=== PATIENT | female | born 1940 | race Caucasian/White ===

== ENCOUNTER → 2017-04-17 | Outpatient (CLI) | payer BC ==
[~2017-04-17] MED LIST: ASPCH81X PO; B-COTAB18 PO; CALC-354 PO; LTR510 PO; MELO7.5T5 PO; MULT-190 PO; NORT10CA2 PO; PRAV40TA2 PO
--- NOTE | 2017-04-18 07:56 | MAMMOGRAPHY REPORT ---
BILATERAL DIGITAL SCREENING MAMMOGRAM TOMOSYNTHESIS WITH CAD: 04/17/2017 CLINICAL HISTORY: Routine screening. Patient has no complaints. TECHNIQUE: Breast tomosynthesis in addition to standard 2D mammography was performed. Current study was also evaluated with a Computer Aided Detection (CAD) system. COMPARISON: Comparison is made to exams dated: 10/17/2016 mammogram, 04/19/2016 mammogram, 04/14/2016 mammogram, 04/13/2015 mammogram, 04/10/2014 mammogram, and 04/09/2013 mammogram - [facility]. BREAST COMPOSITION: There are scattered areas of fibroglandular density in both breasts. FINDINGS: The parenchymal pattern is similar to prior exams. There are numerous bilateral benign r im calcifications. No developing mass, architectural distortion or cluster of suspicious microcalci fications is seen in either breast. IMPRESSION: ACR BI-RADS CATEGORY 2: BENIGN There is no mammographic evidence of malignancy. A 1 year screening mammogram is recommended. The p atient will receive written notification of the results. Approximately 10% of breast cancers are not detected with mammography. A negative mammographic repor t should not delay biopsy if a clinically suggestive mass is present. Jayne Knox M.D. ay/:04/17/2017 21:31:36 Oyster Farmer: Farzaneh MORALES(Castillo)(Angela)(SOCO), [facility] letter sent: Normal 1/2 BI-RADS Code: ACR BI-RADS Category 2: Benign
== END | disposition home or self-care (01) ==
LOC: C.MAMM 10:33
PROVIDERS: ATTEND Internal Medicine
DX: Z12.31 Encounter for screening mammogram for malignant neoplasm of breast (principal)

== ENCOUNTER → 2017-07-10 | Outpatient (CLI) | payer BC ==
--- NOTE | 2017-07-10 14:56 | DIAGNOSTIC IMAGING REPORT ---
LEFT HIP UNILATERAL 2 VIEWS CLINICAL HISTORY: ACUTE LEG PAIN, SHOULDER PAIN pain COMPARISON: None. DISCUSSION: Mild degenerative narrowing left hip joint space. Mild degenerative sclerosis left sacroiliac joint. No evidence for acetabular protrusion. There is no evidence for soft tissue swelling. 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 No acute process. The above report was generated using voice recognition software. It may contain grammatical, syntax or spelling errors. Electronically signed by: Janusz Cortez M.D. 07/10/2017 2:55 PM Dictated Date/Time: 07/10/2017 2:54 PM
--- NOTE | 2017-07-10 15:00 | DIAGNOSTIC IMAGING REPORT ---
RIGHT SHOULDER MIN 2 VIEWS ROUTINE CLINICAL HISTORY: 76 years-old Female presenting with left hip pain since March, history of fall. TECHNIQUE: Internal rotation, external rotation, and Grashey views of the right shoulder were obtained. COMPARISON: Chest x-ray from 10/03/2016. FINDINGS: No acute fracture or subluxation. Acromioclavicular and glenohumeral joints congruent. Osseous glenoid is intact. Normal morphology of the humeral head. Regional soft tissues within normal limits. Visualized portion of the right hemithorax is normal. IMPRESSION: No acute osseous injury of the right shoulder. Electronically signed by: Brett Anne M.D. 07/10/2017 2:59 PM Dictated Date/Time: 07/10/2017 2:57 PM
== END | disposition home or self-care (01) ==
LOC: C.RADBC 14:20
PROVIDERS: ATTEND Physician Assistant Medical
DX: M16.12 Unilateral primary osteoarthritis, left hip (principal); M79.662 Pain in left lower leg; M25.511 Pain in right shoulder

== ENCOUNTER → 2017-12-21 | Outpatient (CLI) | payer BC ==
[2017-12-21 13:29] LABS: BASO % 1.3 %; BASO ABS # 0.08 K/uL (0-0.2); EOS ABS # 0.36 K/uL (0-0.5); HEMATOCRIT 39.3 % (37-47); HEMOGLOBIN 12.7 g/dL (12.0-16.0); IG# 0.02 K/uL (0.00-0.02); LYMPH % 38.6 %; LYMPH ABS # 2.31 K/uL (1.2-3.4); MEAN CELL VOLUME 61.3 fL (80-100); MEAN CORPUSCULAR HEMOGLOBIN 19.8 pg (25-34); MEAN CORPUSCULAR HGB CONC 32.3 g/dl (32-36); MEAN PLATELET VOLUME 9.9 fL (7.4-10.4); MONO % 7.2 %; MONO ABS # 0.43 K/uL (0.11-0.59); NEUT % 46.6 %; NEUT ABS # 2.78 K/uL (1.4-6.5); PLATELET COUNT 214 K/uL (130-400); RED CELL DISTRIBUTION WIDTH CV 15.6 % (11.5-14.5); RED CELL DISTRIBUTION WIDTH SD 33.2 fL (36.4-46.3); WHITE BLOOD COUNT 5.98 K/uL (4.8-10.8)
[2017-12-21 14:04] LABS: ALBUMIN 4.4 gm/dl (3.4-5.0); ALT/SGPT 27 U/L (12-78); BLOOD UREA NITROGEN 17 mg/dl (7-18); CALCIUM 8.9 mg/dl (8.5-10.1); CARBON DIOXIDE 26 mmol/L (21-32); CHOLESTEROL 169 mg/dl (0-200); CREATININE 0.61 mg/dl (0.60-1.20); GLUCOSE 90 mg/dl (70-99); POTASSIUM 4.1 mmol/L (3.5-5.1); SODIUM 138 mmol/L (136-145)
[2017-12-21 14:12] LABS: ALKALINE PHOSPHATASE 47 U/L (45-117); AST/SGOT 20 U/L (15-37); LDL CHOLESTEROL CALCULATED 114 mg/dl; PHOSPHORUS 3.2 mg/dl (2.5-4.9); TOTAL PROTEIN 7.5 gm/dl (6.4-8.2)
== END | disposition home or self-care (01) ==
LOC: C.LABBC 09:33
PROVIDERS: ATTEND Internal Medicine
DX: M85.80 Other specified disorders of bone density and structure, unspecified site (principal); I10 Essential (primary) hypertension; D56.9 Thalassemia, unspecified; E78.5 Hyperlipidemia, unspecified; K21.9 Gastro-esophageal reflux disease without esophagitis; E04.9 Nontoxic goiter, unspecified; M54.5 Low back pain

== ENCOUNTER 2018-07-16 00:06 | Emergency (ER) | payer BC ==
[~2018-07-16] VITALS: Ht 152.4 cm; Wt 58.3 kg
[~2018-07-16 00:06] MED LIST changes: +AMLO-710 PO; -LTR510 PO
[2018-07-16 00:10] VITALS: TEMP 36.7; Ht 152.4 cm; Wt 58.3 kg
[2018-07-16] MEDS ORDERED: HYDROCORTISONE 1% CR 30 GM TUBE EXT STA (00:27)
--- NOTE | 2018-07-16 00:28 | EMERGENCY ROOM VISIT NOTE ---
History Report prepared by Sarah: Yonny Hooks Under the Supervision of: Dr. Juanita Newman D.O. First contact with patient: 00:15 Chief Complaint: ELBOW PAIN/INJURY Stated Complaint: BURNING AT THE ELBOW LEFT ARM History of Present Illness The patient is a 77 year old female who presents to the Emergency Room with complaints of constant left dorsal forearm burning beginning at 1999 last night. The patient states that she had a shingles shot two weeks ago in her left elbow. She notes that she had a bad reaction to a shingles shot before which caused her to believe that her current symptoms might be caused by the shingles shot that she received two weeks ago. She reports that her dorsal left forearm is sensitive to touch. She also complains of left leg itchiness. Per , a vein in the patient's dorsal left forearm appeared more prominent than usual but has since disappeared. Source of History: patient, spouse/significant other () Onset: 1999 last night Position: other (left dorsal forearm) Quality: burning Timing: constant Note: The patient states that her dorsal left forearm is sensitive to touch. She also complains of left leg itchiness. Per , the patient had a more prominent vein in the area than usual. Review of Systems See HPI for pertinent positives & negatives. A total of 6 systems reviewed and were otherwise negative. Past Medical & Surgical Surgical Problems: (1) H/O: hysterectomy (2) History of appendectomy (3) Hx of cholecystectomy Family History Cancer Lung disease Social History Smoking Status: Never Smoker Marital Status: Housing Status: lives with family Occupation Status: retired Current/Historical Medications Scheduled Amlodipine/Benazepril (Lotrel 5MG/10MG), 1 CAP PO QAM Aspirin (Aspirin Chewable), 81 MG PO QAM B-Complex Vitamins (Vitamin B Complex), 1 TAB PO QAM Calcium Carbonate-Cholecalcife (Caltrate 600+D), 1 TAB PO QAM Meloxicam (Mobic), 7.5 MG PO QAM Nortriptyline (Pamelor), 10 MG PO HS Ocuvite Preservision (Ocuvite Preservision), 1 TAB PO QAM Pravastatin Sodium (Pravastatin Sodium), 1 TAB PO HS Allergies Coded Allergies: Codeine (Unverified Allergy, Unknown, Can't walk, 04/01/16) Sulfa Drugs (Verified Allergy, Unknown, HEADACHE/RASH, 03/24/16) Physical Exam Vital Signs Date Time Temp Pulse Resp B/P (MAP) Pulse Ox O2 Delivery O2 Flow Rate FiO2 07/16/18 00:49 74 18 143/72 97 07/16/18 00:10 36.7 81 18 199/79 97 Room Air Physical Exam Left Arm: The dorsal left forearm has no obvious findings. Patient states that the skin watters but does not hurt. She denies coming into contact with anything. Medical Decision & Procedures Medications Administered Medications (Trade) Dose Ordered Sig/Aide Route Start Time Stop Time Status Last Admin Dose Admin Hydrocortisone (Hydrocortisone 1% Crm) 1 appln NOW STAT EXT 07/16/18 00:27 07/16/18 00:29 DC 07/16/18 00:46 1 APPLN Procedure Medications Administered: Hydrocortisone 1 appln EXT ED Course 0020: Past medical records reviewed. The patient was evaluated in room B3. A focued history and physical exam was performed. 0027: Hydrocortisone 1 appln EXT was applied to the left forearm 0037: I have encouraged the patient to pay close attention to the symptoms in that left arm. If the symptoms worsen, she should return to the emergency department. Otherwise, she can follow-up with her PCP. Medical Decision The patient is a 77 year old female who presents to the Emergency Room with complaints of constant left dorsal forearm burning beginning at 1999 last night. Differential diagnoses include: skin irritation, shingles, contact dermatitis, cervical radiculopathy, and DVT. No obvious skin findings were noted. The patient will follow up with her PCP as described above. Medication Reconcilliation Current Medication List: was personally reviewed by me Blood Pressure Screening Patient's blood pressure: Elevated blood pressure Blood pressure disposition: Elevated BP felt to be situational Impression Primary Impression: Skin irritation Scribe Attestation The scribe's documentation has been prepared under my direction and personally reviewed by me in its entirety. I confirm that the note above accurately reflects all work, treatment, procedures, and medical decision making performed by me. Departure Information Dispostion Home / Self-Care Referrals Brett Vasquez M.D. (PCP) Forms HOME CARE DOCUMENTATION FORM, IMPORTANT VISIT INFORMATION Patient Instructions My [facility] Additional Instructions Watch the area closely. You may continue to use hydrocortisone cream on area every 8 hours if it keeps burning Follow up with PCP
[2018-07-16 00:49] VITALS: BP 143/72; PULSE 74; O2SAT 97
== END 2018-07-16 00:51 | disposition home or self-care (01) ==
LOC: C.EDB 00:07
DX: R20.8 Other disturbances of skin sensation (principal); Z88.2 Allergy status to sulfonamides; Z88.6 Allergy status to analgesic agent; Z79.82 Long term (current) use of aspirin; Z79.899 Other long term (current) drug therapy

== ENCOUNTER 2021-01-18 20:16 | Observation (INO) ==
[~2021-01-18 20:16] MED LIST changes: +ADENOSINE IV SOLN 3 MG/ML 2 ML VIAL IV ONE; -AMLO-710 PO; -ASPCH81X PO; -B-COTAB18 PO; -CALC-354 PO; -MELO7.5T5 PO; -MULT-190 PO; -NORT10CA2 PO; -PRAV40TA2 PO
[2021-01-18] MEDS ORDERED: SODIUM CHLORIDE 0.9% 1000ML 1,000 ML IV ONE (21:06)
--- NOTE | 2021-01-18 21:16 | Emergency Department Note ---
Impression & Plan Vertigo, Paroxysmal atrial fibrillation with RVR, Dehydration, Palpitations ED Provider Note NAME: MARLENY DIETZ AGE: 80 SEX: F ARRIVES VIA: Ambulance INFORMANT: Patient, ED PROVIDER(S): Yoseph Bates MD CHIEF COMPLAINT: dizziness PLAN: Disposition: Home MEDICAL DECISION MAKING: The patient is a pleasant 80-year-old woman with a past medical history of paroxysmal atrial fibrillation on Eliquis, hypertension, hyperlipidemia who p resents emerge department with dizziness/vertigo which she initially felt this morning when she was in bed doing her exercises and then reported feeling as though her A. fib had returned which she has "learned to live with" but then began to feel lightheaded shortly after eating dinner and so reports emergency department via EMS after calling her electronic equipment trades worker who referred her for evaluation. Patient denies any cough, chest pain, shortness of breath, abdominal pain, vomiting, urinary symptoms. She reports feeling healthy prior to her symptoms today. She denies any known COVID-19 exposures. On arrival the patient is fatigued appearing but no acute distress, afebrile with stable vital signs. She appears clinically dry. She has no focal neurologic deficits. TMs are clear. On arrival the patient is in sinus rhythm rate of 87 no ectopy, no overt ST elevation or depression, QTC 435, QRS 88. Chest x-ray negative for acute cardiopulmonary process per my preliminary review. WBC, H/H and platelets within normal limits. Chemistry without metabolic acidosis. Electrolytes and LFTs unremarkable. Troponin negative/undetectable. CT of the head and CT of the head and neck negative for ICH, CVA or severe narrowing or occlusion of large vessels per preliminary stat rad report. Upon reevaluation patient was feeling improved after IV fluid hydration. Unclear etiology of the patient's symptoms at this time though may been related to peripheral vertigo provoked by mild dehydration. Patient did capture episodes of atrial fibrillation on her iPhone though none were captured by EMS though a brief nonsustained episode of SVT was captured. We were attempting to discharge the patient but she was reporting recurrence and continuation of room spinning though not overtly ataxic. Thus, she was ordered for oral meclizine however given the patient's persistent symptoms without any overt nystagmus she did agree to proceed with admission for evaluation and possible MRI to exclude central etiology. Dr. Mtz, [facility] [place], to evaluate the patient for admission. Triage Nursing notes reviewed and agree them. Prior medical records reviewed Vital Signs: reviewed and remarkable for no significant abnormalities Differential diagnosis: Benign positional vertigo, dehydration, hypovolemia, anemia, tumor, infection, hypoglycemia, electrolyte abnormalities, cardiac sources, intracerebral event, toxicologic, neurologic, as well as other pathologies. ER treatment provided: See below. Diagnostics interpreted by me: ECG: Normal sinus rhythm, 87 bpm, no ectopy, no overt ST elevation or depression, QTC 435, QRS 88. Cardiac Monitoring: An order for continuous cardiac monitoring was placed and demonstrated Normal sinus rhythm, 87 bpm, no ectopy. Laboratory studies: See below Imaging studies: CXR: Acute cardiopulmonary process per my preliminary review. STATRAD: Preliminary Findings Only See Final Report For Complete Findings CT HEAD: Comparison to September 28, 2020. Mild cerebral atrophy and patchy periventricular and deep white matter low densities consistent with chronic small vessel disease and/or senescent changes. There is no evidence of acute large vessel infarct or intracranial hemorrhage. The paranasal sinuses and mastoid air cells are normal. There is no skull fracture or scalp hematoma. Radiologist: Sina Mtz MD Study ready at 22:02 and initial results transmitted at 22:15 -- Preliminary Findings Only See Final Report For Complete Findings CTA NECK: The aorta is nondilated. There is no aneurysm or dissection. Small amount of calcified plaque in the left carotid bulb produces less than 20% stenosis of the proximal left internal carotid artery. The right carotid bifurcation is normal. Both vertebral arteries are widely patent. No focal stenosis or dissection is seen. Neck soft tissues appear unremarkable. Radiologist: Sina Mtz MD Study ready at 22:10 and initial results transmitted at 22:19 -- Preliminary Findings Only See Final Report For Complete Findings CTA HEAD: A normal anatomic variant origin of the right posterior cerebral artery from the anterior circulation. Otherwise normal CT angiogram of the brain. No aneurysm, vascular malformation, or arterial thrombus is identified. Mild cerebral atrophy and periventricular white matter low density consistent with chronic small vessel disease. Radiologist: Sina Mtz MD Study ready at 22:03 and initial results transmitted at 22:17 Consultation(s): Dr. Mtz, [facility] [place]ist. HPI: The patient is a pleasant 80-year-old woman with a past medical history of paroxysmal atrial fibrillation on Eliquis, hypertension, hyperlipidemia who presents emerge department with dizziness/vertigo which she initially felt this morning when she was in bed doing her exercises and then reported feeling as though her A. fib had returned which she has "learned to live with" but then began to feel lightheaded shortly after eating dinner and so reports emergency department via EMS after calling her electronic equipment trades worker who referred her for evaluation. Patient denies any cough, chest pain, shortness of breath, abdominal pain, vomiting, urinary symptoms. She reports feeling healthy prior to her symptoms today. She denies any known COVID-19 exposures. ROS: See above HPI for pertinent positives & negatives. A total of 10 systems reviewed and were otherwise negative. PAST MEDICAL HISTORY:See Below PAST SURGICAL HISTORY:See Below FAMILY HISTORY:See Below SOCIAL HISTORY:See Below HOME MEDICATIONS:See Below ALLERGIES:See Below VITALS:See Below PHYSICAL EXAMINATION: GENERAL: Awake, alert, fatigued-appearing, in no distress HENT: Normocephalic, atraumatic. Oropharynx with dry mucous membranes and otherwise unremarkable. EYES: Normal conjunctiva. Sclera non-icteric. EOMI. No nystamgus. PEARRL. NECK: Supple. No nuchal rigidity. FROM. No JVD. RESPIRATORY: Clear to auscultation. CARDIAC: Regular rate, normal rhythm. Extremities warm and well perfused. Pulses equal. ABDOMEN: Soft, non-distended. No tenderness to palpation. No rebound or guarding. No masses. RECTAL: Deferred. MUSCULOSKELETAL: Chest examination reveals no tenderness. The back is symmetrical on inspection without obvious abnormality. There is no CVA tenderness to palpation. No joint edema. LOWER EXTREMITIES: Calves are equal size bilaterally and non-tender. No edema. No discoloration. NEURO: Normal sensorium. No sensory or motor deficits noted. 5/5 strength and SILT x 4 extremities. Intact including [id number]. SKIN: No rash or jaundice noted. 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 Osteoporosis Paroxysmal atrial fibrillation with RVR Polyosteoarthritis, unspecified Raynauds phenomenon Sacroiliitis Thalassemia syndrome Surgical History History of appendectomy History of cholecystectomy History of colon resection History of colonoscopy with polyp resection History of esophagogastroduodenoscopy (EGD) History of hand surgery rt index finger History of melanoma excision History of tooth extraction History of total abdominal hysterectomy and bilateral salpingo-oophorectomy Family History Brother Lung cancer Denies family history of Ovarian cancer Prostate cancer Breast cancer Colorectal cancer Social History Smoking Status: Never smoker Second Hand Exposure: Yes; Hx Alcohol Use: Yes Alcohol type: wine Hx Substance Use: No Preferred Language: [place] Communication Ability: Effective Visual Impairment: No Limitations Hearing Ability: Normal Cytotechnologist Supervisor Required: No Beliefs That Will Affect Care: None marital status: Current Living Situation: Spouse current occupational status: retired Feels Safe at Home: Yes Childhood Exposure to Second-Hand Smoke: Yes caffeine: No Dental Care, Regularly: Yes Physical Activity Frequency: Daily Physical Activity Frequency Comment: walks 2 miles daily Seatbelt Use: always Sunscreen Use: Yes Assistive Devices: Glasses Allergies Allergies Allergy/AdvReac Type Severity Reaction Status Date / Time codeine Allergy Unknown Can't walk Verified 01/18/21 21:27 Sulfa (Sulfonamide Allergy Unknown HEADACHE/RA Verified 01/18/21 21:27 Antibiotics) SH amoxicillin Allergy Rash Verified 01/18/21 21:27 clavulanic acid AdvReac Verified 01/18/21 21:27 [From Augmentin] Home Meds Home Medications Medication Instructions Recorded Confirmed acetaminophen [Tylenol] 325 mg PO Q4H PRN 11/30/18 01/18/21 psyllium husk (aspartame) 1 packet PO DAILY 11/30/18 01/18/21 [Metamucil Fiber Singles] apixaban 2.5 mg tablet 2.5 mg PO BID 06/14/19 01/18/21 metoprolol tartrate 25 mg tablet 12.5 mg PO BID 07/30/19 01/18/21 famotidine [Pepcid] 20 mg PO HS PRN 01/18/21 01/18/21 Previous Rx's Medication Instructions Recorded amlodipine 5 mg-benazepril 10 mg 1 cap PO DAILY #90 cap 03/31/20 capsule pravastatin 40 mg tablet 40 mg PO DAILY #90 tab 03/31/20 zolpidem 5 mg tablet 2.5 - 5 mg PO HS PRN #90 tab 10/19/20 nortriptyline 10 mg capsule 20 mg PO HS #180 cap 12/22/20 meclizine 25 mg PO TID PRN #14 tab 01/18/21 Results & Data (ED) Vital Signs Vital Signs - 24 hr 01/18/21 20:16 01/18/21 20:19 01/18/21 20:20 Temperature Temperature Source Pulse Rate 85 90 90 Pulse Rate from SpO2 Sensor 87 91 H 89 Respiratory Rate 25 H 23 26 H Respiratory Effort / Characteristics Respiratory Depth Respiratory Pattern Blood Pressure 182/84 H Blood Pressure Mean 116 Pulse Oximetry 98 98 97 Oxygen Delivery Method Room Air Room Air Room Air Sepsis Recent Fever Within 48 Hours Sepsis New/Unexplained Change in Mental Status Sepsis Action Taken by Nursing 01/18/21 20:30 01/18/21 20:33 01/18/21 20:38 Temperature Temperature Source Pulse Rate 82 86 Pulse Rate from SpO2 Sensor 85 Respiratory Rate 23 21 Respiratory Effort / Characteristics Respiratory Depth Respiratory Pattern Blood Pressure 143/74 H Blood Pressure Mean 97 Pulse Oximetry 96 98 Oxygen Delivery Method Room Air Room Air Room Air Sepsis Recent Fever Within 48 Hours Sepsis New/Unexplained Change in Mental Status Sepsis Action Taken by Nursing 01/18/21 20:39 01/18/21 20:40 01/18/21 20:41 Temperature 36.8 C Temperature Source Oral Pulse Rate 95 H Pulse Rate from SpO2 Sensor 95 H Respiratory Rate 31 H 20 Respiratory Effort / Characteristics Non-Labored Spontaneous Respiratory Depth Normal Respiratory Pattern Regular Blood Pressure Blood Pressure Mean Pulse Oximetry 92 Oxygen Delivery Method Room Air Room Air Room Air Sepsis Recent Fever Within 48 Hours No Sepsis New/Unexplained Change in Mental Status N/A Sepsis Action Taken by Nursing No Action Required 01/18/21 20:50 01/18/21 21:00 01/18/21 21:01 Temperature Temperature Source Pulse Rate 81 75 75 Pulse Rate from SpO2 Sensor 80 76 75 Respiratory Rate 23 22 22 Respiratory Effort / Characteristics Respiratory Depth Respiratory Pattern Blood Pressure 129/90 Blood Pressure Mean 103 Pulse Oximetry 94 96 94 Oxygen Delivery Method Room Air Room Air Room Air Sepsis Recent Fever Within 48 Hours Sepsis New/Unexplained Change in Mental Status Sepsis Action Taken by Nursing 01/18/21 21:10 01/18/21 22:48 01/18/21 22:49 Temperature Temperature Source Pulse Rate 76 72 Pulse Rate from SpO2 Sensor 76 72 73 Respiratory Rate 25 H 20 Respiratory Effort / Characteristics Respiratory Depth Respiratory Pattern Blood Pressure 118/65 Blood Pressure Mean 82 Pulse Oximetry 95 96 95 Oxygen Delivery Method Room Air Room Air Room Air Sepsis Recent Fever Within 48 Hours Sepsis New/Unexplained Change in Mental Status Sepsis Action Taken by Nursing 01/18/21 22:50 01/18/21 23:00 01/18/21 23:30 Temperature Temperature Source Pulse Rate 72 75 74 Pulse Rate from SpO2 Sensor 71 75 73 Respiratory Rate 16 19 17 Respiratory Effort / Characteristics Respiratory Depth Respiratory Pattern Blood Pressure 170/52 H 151/70 H Blood Pressure Mean 91 97 Pulse Oximetry 96 97 99 Oxygen Delivery Method Room Air Room Air Room Air Sepsis Recent Fever Within 48 Hours Sepsis New/Unexplained Change in Mental Status Sepsis Action Taken by Nursing 01/19/21 00:00 01/19/21 00:30 01/19/21 01:00 Temperature Temperature Source Pulse Rate 77 76 69 Pulse Rate from SpO2 Sensor 77 68 Respiratory Rate 18 18 17 Respiratory Effort / Characteristics Respiratory Depth Respiratory Pattern Blood Pressure 167/75 H 143/83 H 165/70 H Blood Pressure Mean 105 103 101 Pulse Oximetry 97 97 97 Oxygen Delivery Method Room Air Room Air Room Air Sepsis Recent Fever Within 48 Hours Sepsis New/Unexplained Change in Mental Status Sepsis Action Taken by Nursing Laboratory Data Attestation: I reviewed the patient's lab results. Result diagrams: 01/18/21 20:24 01/18/21 20:24 Lab Results 01/18/21 01/18/21 01/19/21 Range/Units 20:24 20:24 00:30 WBC 7.70 (4.8-10.8) K/uL RBC 6.44 H (4.2-5.4) M/uL Hgb 12.9 (12.0-16.0) g/dL Hct 39.3 (37-47) % MCV 61.0 L (80-100) fL MCH 20.0 L (25-34) pg MCHC 32.8 (32-36) g/dL RDW Std Deviation 33.0 L (36.4-46.3) fL RDW Coeff of Pop 15.6 H (11.5-14.5) % Plt Count 203 (130-400) K/uL MPV 9.6 (7.4-10.4) fL Immature Gran % (Auto) 0.4 % Neut % (Auto) 64.2 % Lymph % (Auto) 28.1 % Bullitt % (Auto) 5.6 % Eos % (Auto) 1.3 % Baso % (Auto) 0.4 % Neut # (Auto) 4.95 (1.4-6.5) K/uL Lymph # (Auto) 2.16 (1.2-3.4) K/uL Bullitt # (Auto) 0.43 (0.11-0.59) K/uL Eos # (Auto) 0.10 (0-0.5) K/uL Baso # (Auto) 0.03 (0-0.2) K/uL Immature Gran # (Auto) 0.03 H (0.00-0.02) K/uL Microcytosis Present Sodium 138 (136-145) mmol/L Potassium 3.5 (3.5-5.1) mmol/L Chloride 103 (98-107) mmol/L Carbon Dioxide 27 (21-32) mmol/L Anion Gap 8.0 (3-11) BUN 16 (7-18) mg/dl Creatinine 0.90 (0.6-1.2) mg/dl Est Cr Clr Drug Dosing 38.1 ml/min Est GFR ( Amer) 69.5 Est GFR (Non-Af Amer) 60.0 BUN/Creatinine Ratio 18.1 (10-20) Glucose 153 H (70-99) mg/dl Calcium 9.7 (8.5-10.1) mg/dl Phosphorus 3.2 (2.5-4.9) mg/dl Magnesium 2.2 (1.8-2.4) mg/dl Total Bilirubin 0.7 (0.2-1) mg/dl AST 25 (15-37) U/L ALT 39 (12-78) U/L Alkaline Phosphatase 58 (45-117) U/L Troponin I < 0.015 (0-0.045) ng/ml Total Protein 8.0 (6.4-8.2) gm/dl Albumin 4.3 (3.4-5.0) gm/dl Globulin 3.7 (2.5-4.0) gm/dl Albumin/Globulin Ratio 1.2 (0.9-2) TSH 3.080 (0.300-4.500) uIu/ml COVID-19 Eval Order Covid19 IDNow atMGAC SARS-CoV-2, RNA, NAAT (NEGATIVE) 01/19/21 Range/Units 00:30 WBC (4.8-10.8) K/uL RBC (4.2-5.4) M/uL Hgb (12.0-16.0) g/dL Hct (37-47) % MCV (80-100) fL MCH (25-34) pg MCHC (32-36) g/dL RDW Std Deviation (36.4-46.3) fL RDW Coeff of Pop (11.5-14.5) % Plt Count (130-400) K/uL MPV (7.4-10.4) fL Immature Gran % (Auto) % Neut % (Auto) % Lymph % (Auto) % Bullitt % (Auto) % Eos % (Auto) % Baso % (Auto) % Neut # (Auto) (1.4-6.5) K/uL Lymph # (Auto) (1.2-3.4) K/uL Bullitt # (Auto) (0.11-0.59) K/uL Eos # (Auto) (0-0.5) K/uL Baso # (Auto) (0-0.2) K/uL Immature Gran # (Auto) (0.00-0.02) K/uL Microcytosis Sodium (136-145) mmol/L Potassium (3.5-5.1) mmol/L Chloride (98-107) mmol/L Carbon Dioxide (21-32) mmol/L Anion Gap (3-11) BUN (7-18) mg/dl Creatinine (0.6-1.2) mg/dl Est Cr Clr Drug Dosing ml/min Est GFR ( Amer) Est GFR (Non-Af Amer) BUN/Creatinine Ratio (10-20) Glucose (70-99) mg/dl Calcium (8.5-10.1) mg/dl Phosphorus (2.5-4.9) mg/dl Magnesium (1.8-2.4) mg/dl Total Bilirubin (0.2-1) mg/dl AST (15-37) U/L ALT (12-78) U/L Alkaline Phosphatase (45-117) U/L Troponin I (0-0.045) ng/ml Total Protein (6.4-8.2) gm/dl Albumin (3.4-5.0) gm/dl Globulin (2.5-4.0) gm/dl Albumin/Globulin Ratio (0.9-2) TSH (0.300-4.500) uIu/ml COVID-19 Eval Order SARS-CoV-2, RNA, NAAT NEGATIVE (NEGATIVE) Administered Medications Discontinued Medications Adenosine (Adenosine Iv Soln 3 Mg/Ml 2 Ml Vial) Confirm Administered Dose 18 mg IV .STK-MED ONE Stop: 01/18/21 20:14 Last Admin: 01/18/21 20:43 Dose: Not Given Documented by: [id number] Sodium Chloride (Nss 1000ml) 1,000 mls @ 999 mls/hr IV .Q1H1M ONE Stop: 01/18/21 22:06 Last Infusion: 01/18/21 22:14 Dose: 0 mls/hr Documented by: [id number] Admin: 01/18/21 21:13 Dose: 999 mls/hr Documented by: [id number] Ioversol (Optiray 320 125ml) 119 ml IV ONCE ONE Stop: 01/18/21 21:56 Last Admin: 01/18/21 21:55 Dose: 119 ml Documented by: [id number] Meclizine HCl (Meclizine Hcl 25mg Home Pack) 1 homepack PO UD ONE Stop: 01/18/21 23:42 Last Admin: 01/19/21 00:29 Dose: Not Given Documented by: [id number] Meclizine HCl (Meclizine Hcl 25 Mg Tab) 25 mg PO NOW STA Stop: 01/19/21 00:22 Last Admin: 01/19/21 00:29 Dose: 25 mg Documented by: [id number] Discharge Plan Visit Data Chief Complaint: Cardiac Assessment Stated Complaint: SVT ED Provider: Yoseph Bates Discharge Problem: Vertigo, Paroxysmal atrial fibrillation with RVR, Dehydration, Palpitations Patient Disposition: Home - Self-Care Condition: Good Discharge Instructions Krames/Other Patient Handouts: Understanding Supraventricular ..., ED Atrial Fibrillation, ED Dehydration (Adult), ED Dizziness, Uncertain Cause, ED Vertigo, Unspecified Activity Restrictions/Additional Instructions: Please follow up with your primary care physician and electronic equipment trades worker in the next week for re-evaluation. The cause your symptoms not definitive at this time but may have been related to component of dehydration possibly provoking her history of A. fib as well as possible episodes of SVT. Otherwise, your exam, EKG, chest xray, lab results, CT scan of your head and neck with constrast did not show signs of an emergent condition at this time. Ensure hydration. Meclizine as needed for possible recurrence of vertigo. Continue your current medications as prescribed. Return to the emergency department for worsening symptoms as described in the accompanying instructions. Forms Stand Alone Forms: [facility], [facility] Emergency Department, Important Visit Information Prescriptions Prescriptions: New meclizine 25 mg tablet 25 mg PO TID PRN (Reason: dizziness) Qty: 14 RF: 0 No Action amlodipine-benazepril [Lotrel] 5-10 mg capsule 1 cap PO DAILY Qty: 90 RF: 3 pravastatin [Pravachol] 40 mg tablet 40 mg PO DAILY Qty: 90 RF: 3 zolpidem [Ambien] 5 mg tablet 2.5 - 5 mg PO HS PRN (Reason: Insomnia) Qty: 90 RF: 0 nortriptyline [Pamelor] 10 mg capsule 20 mg PO HS Qty: 180 RF: 3 metoprolol tartrate 25 mg tablet 12.5 mg PO BID RF: 0 Eliquis 2.5 mg tablet 2.5 mg PO BID RF: 0 acetaminophen [Tylenol] 325 mg Tablet 325 mg PO Q4H PRN (Reason: Pain) RF: 0 Metamucil Fiber Singles 3.4 gram Powder In Packet 1 packet PO DAILY RF: 0 famotidine [Pepcid] 40 mg tablet 20 mg PO HS PRN (Reason: GERD) RF: 0 Referrals Referrals: Brett Vasquez MD [Primary Care Provider] -
[2021-01-18 21:19] LABS: Basophils # (auto) 0.03 K/uL (0-0.2); Basophils % (auto) 0.4 %; Eosinophils % (auto) 1.3 %; Hematocrit (blood only) 39.3 % (37-47); Hemoglobin 12.9 g/dL (12.0-16.0); Immature Granulocytes # (auto) 0.03 K/uL (0.00-0.02); Immature Granulocytes % (auto) 0.4 %; Lymphocytes # (auto) 2.16 K/uL (1.2-3.4); Lymphocytes % (auto) 28.1 %; Mean Corpuscular Hgb Conc 32.8 g/dL (32-36); Mean Platelet Volume 9.6 fL (7.4-10.4); Monocytes # (auto) 0.43 K/uL (0.11-0.59); Monocytes % (auto) 5.6 %; Neutrophils # (auto) 4.95 K/uL (1.4-6.5); Neutrophils % (auto) 64.2 %; Platelet Count 203 K/uL (130-400); RDW Coefficient of Variation 15.6 % (11.5-14.5); Red Blood Count 6.44 M/uL (4.2-5.4)
[2021-01-18 21:28] LABS: Alanine Aminotransferase 39 U/L (12-78); Albumin Level 4.3 gm/dl (3.4-5.0); Aspartate Aminotransferase 25 U/L (15-37); BUN Creatinine Ratio 18.1 (10-20); Blood Urea Nitrogen 16 mg/dl (7-18); Calcium 9.7 mg/dl (8.5-10.1); Carbon Dioxide 27 mmol/L (21-32); Chloride 103 mmol/L (98-107); Creatinine Clr Calc Pharmacy 38.1 ml/min; Est GFR (African American) 69.5; Glucose 153 mg/dl (70-99); Magnesium 2.2 mg/dl (1.8-2.4); Potassium 3.5 mmol/L (3.5-5.1); Sodium 138 mmol/L (136-145)
[2021-01-18 21:38] LABS: Albumin Globulin Ratio 1.2 (0.9-2); Alkaline Phosphatase 58 U/L (45-117); Bilirubin,Total 0.7 mg/dl (0.2-1); Globulin 3.7 gm/dl (2.5-4.0); Phosphorus 3.2 mg/dl (2.5-4.9); Troponin I < 0.015 ng/ml (0-0.045)
[2021-01-18] MEDS ORDERED: OPTIRAY 320 125ml IV ONE (21:55)
[2021-01-18 22:22] LABS: Microcytosis Present
[2021-01-18] MEDS ORDERED: MECLIZINE HCL 25MG HOME PACK PO ONE (23:41)
[2021-01-19] MEDS ORDERED: MECLIZINE HCL 25 MG TAB PO STA (00:21)
--- NOTE | 2021-01-19 03:25 | History & Physical Report ---
Date of Service January 19, 2021 Assessment & Plan Admission and Anticipated Discharge Date Admission Date: 80 yo F w/ pMHx. of HTN, HLD, Raynauds phenomenon, arthritis, paroxysmal atrial fibrillation presents with multiple episodes of vertigo along with palpitations most consistent with BPPV and atrial fibrillation based on + Mereta Hallpike exam although unclear inciting event, potentially dehydration although inconsistent with labs; potentially idiopathic. STAT rad read - CT head with chronic small vessel disease with no evidence of acute large vessel infarct STAT rad read - CTA neck with no focal stenosis or dissection - follow up final CT read - ordered orthostatic vitals in AM to evaluate for orthostatic hypotension as alternative cause of symptoms - observe in Med/surg with - tele - Meclizine available - continue to hydrate with LR 80 mL/h (1 bag) - discussed home Jimena maneuver with patient Paroxysmal Atrial fibrillation, currently in NSR, [id number] score of 4 - monitor with telemetry - continue Apixaban - continue metoprolol reflux - continue Pepcid HTN - continue Metoprolol and Amlodipine HLD - continue Pravastatin Insomnia - continue zolpidem Code: full Diet: regular DVT: continue Apixaban COVID: negative 01/19/21 History of Present Illness Chief Complaint: Vertigo Primary Care Provider: Brett Vasquez MD Reema Miller is here for vertigo. She has a past medical history of Raynaud phenomenon, arthritis, HTN, HLD, paroxysmal atrial fibrillation with RVR, insomnia, and reflux. 3 weeks ago she had an isolated episode of vertigo that resolved after a few minutes. This morning when she woke up she developed vertigo that she explained as the ceiling spinning. This lasted a few minutes and resolved. At 5PM she developed palpitations at dinner and her apple watch had her in A. fib at a rate of 120. She also noted that she did not feel, felt faint and that she felt, "hot in her ears". She called her bridge builder Dr. Ornelas and he instructed her to come to the ER. In the ER she developed Vertigo two other times once while getting a CT scan and once while going to the [facility]. She could not clearly identify any trigger or movement that brought it on. She has not had any double vision and no vision changes excluding changes from macular degeneration that have been chronic. She has no sick contacts and no recent illness. Allergies Allergy/AdvReac Type Severity Reaction Status Date / Time codeine Allergy Unknown Can't walk Verified 01/18/21 21:27 Sulfa (Sulfonamide Allergy Unknown HEADACHE/RA Verified 01/18/21 21:27 Antibiotics) SH amoxicillin Allergy Rash Verified 01/18/21 21:27 clavulanic acid AdvReac Verified 01/18/21 21:27 [From Augmentin] Home Medications Medication Instructions Recorded Confirmed Type acetaminophen [Tylenol] 325 mg PO Q4H PRN 11/30/18 01/18/21 History psyllium husk (aspartame) 1 packet PO DAILY 11/30/18 01/18/21 History [Metamucil Fiber Singles] apixaban 2.5 mg tablet 2.5 mg PO BID 06/14/19 01/18/21 History metoprolol tartrate 25 mg tablet 12.5 mg PO BID 07/30/19 01/18/21 History amlodipine 5 mg-benazepril 10 mg 1 cap PO DAILY #90 cap 03/31/20 01/18/21 Rx capsule pravastatin 40 mg tablet 40 mg PO DAILY #90 tab 03/31/20 01/18/21 Rx zolpidem 5 mg tablet 2.5 - 5 mg PO HS PRN #90 tab 10/19/20 01/18/21 Rx nortriptyline 10 mg capsule 20 mg PO HS #180 cap 12/22/20 01/18/21 Rx famotidine [Pepcid] 20 mg PO HS PRN 01/18/21 01/18/21 History meclizine 25 mg PO TID PRN #14 tab 01/18/21 Rx Past Med/Surg History Medical History Chronic anticoagulation Chronic low back pain Diverticular disease Gastroesophageal reflux disease without esophagitis History of ectopic History of endometriosis History of melanoma Hyperlipidemia Hypertension Mediterranean anemia Migraine 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 Osteoporosis Paroxysmal atrial fibrillation with RVR Polyosteoarthritis, unspecified Raynauds phenomenon Sacroiliitis Thalassemia syndrome Surgical History History of appendectomy History of cholecystectomy History of colon resection History of colonoscopy with polyp resection History of esophagogastroduodenoscopy (EGD) History of hand surgery rt index finger History of melanoma excision History of tooth extraction History of total abdominal hysterectomy and bilateral salpingo-oophorectomy Family History Brother Lung cancer Denies family history of Ovarian cancer Prostate cancer Breast cancer Colorectal cancer Social History Smoking Status: Never smoker Second Hand Exposure: Yes; Hx Alcohol Use: Yes Alcohol type: wine Hx Substance Use: No Preferred Language: Italian Communication Ability: Effective Visual Impairment: No Limitations Hearing Ability: Normal Bleacher Lard Required: No Beliefs That Will Affect Care: None marital status: Current Living Situation: Spouse current occupational status: retired Feels Safe at Home: Yes Safety Concerns: Feels Safe At This Time Childhood Exposure to Second-Hand Smoke: Yes caffeine: No Dental Care, Regularly: Yes Physical Activity Frequency: Daily Physical Activity Frequency Comment: walks 2 miles daily Seatbelt Use: always Sunscreen Use: Yes Assistive Devices: Glasses Review of Systems Review of Systems: Constitutional: denies fevers, chills, nausea, vomiting, weight change admits sweats this morning with episode Head: denies trauma, LOC, changes in vision, admits chronic unchanged headaches Neurologic: denies syncope, slurring of speech, focal weakness, decreased sensation, numbness or tinging, admits chronic unchanged neck stiffness ENT: denies rhinorrhea, stuffiness, sore throat, admit vertigo and tinnitus which is chronic and unchanged Cardiac: denies lower extremity edema admits spasms of lower chest pain and palpitations GI: denies constipation, diarrhea : denies dysuria Physical Exam Constitutional: well nourished; no acute distress Eyes: PERRL and + nystagmus (with evaluation of EOM when looking to the right) ENMT: external ear and nose normal, oropharynx normal Neck: normal visual inspection Respiratory: normal respiratory effort, lungs clear to auscultation Cardiovascular: RRR, no murmur, no edema Gastrointestinal (Abdomen): normal bowel sounds, soft, nontender, no hepatosplenomegaly Musculoskeletal: no cyanosis or clubbing, extremities motor strength 5/5 Skin: no rashes, warm and dry Neurologic: CN's II-XI intact bilaterally (with the exception of nystagmus on EOM when looking to the left 3-4 beats) and awake; no focal motor deficits Speech / Cognition: normal speech Motor/Sensory: no pronator drift Nando Hallpike with reproduced symptoms when facing left and laying down Psychiatric: A+Ox3, euthymic affect Results & Data Results & Data ([facility]) Vital Signs (Past 12 Hours) Vital Signs Temp Pulse Resp BP Pulse Ox 01/19/21 02:30 65 19 143/69 H 98 01/19/21 02:01 76 19 169/61 H 96 01/19/21 01:30 64 22 155/66 H 96 01/19/21 01:00 69 17 165/70 H 97 01/19/21 00:30 76 18 143/83 H 97 01/19/21 00:00 77 18 167/75 H 97 01/18/21 23:30 74 17 151/70 H 99 01/18/21 23:00 75 19 170/52 H 97 01/18/21 22:50 72 16 96 01/18/21 22:49 72 20 118/65 95 01/18/21 22:48 96 01/18/21 21:10 76 25 H 95 01/18/21 21:01 75 22 94 01/18/21 21:00 75 22 129/90 96 01/18/21 20:50 81 23 94 01/18/21 20:41 36.8 C 20 01/18/21 20:40 95 H 31 H 92 01/18/21 20:38 98 01/18/21 20:33 86 21 143/74 H 96 01/18/21 20:30 82 23 01/18/21 20:20 90 26 H 97 01/18/21 20:19 90 23 98 01/18/21 20:16 85 25 H 182/84 H 98 CBC Results Results Complete Blood Count Results: RBC 6.44 M/uL (4.2-5.4) H 01/18/21 WBC 7.70 K/uL (4.8-10.8) 01/18/21 Hgb 12.9 g/dL (12.0-16.0) 01/18/21 Hct 39.3 % (37-47) 01/18/21 Plt Count 203 K/uL (130-400) 01/18/21 Chemistry (BMP) Results BMP Results: Sodium 138 mmol/L (136-145) 01/18/21 Potassium 3.5 mmol/L (3.5-5.1) 01/18/21 Chloride 103 mmol/L (98-107) 01/18/21 BUN 16 mg/dl (7-18) 01/18/21 Creatinine 0.90 mg/dl (0.6-1.2) 01/18/21 Glucose 153 mg/dl (70-99) H 01/18/21 Supervising Physician Co-Signing Physician Notes Patient seen and examined, chart reviewed, case discussed with Dr. Becerra and I agree with his assessment and plan as above. Briefly, patient is an 80yo female presenting with dizziness, most consistent with BPPV. She is hesitant to return home as her recently suffered a CVA and no longer drives. On exam she is afebrile, HD stable, NAD Nonfocal neurological exam Skin - no rash HEENT - MMM, +horizontal nystagmus with EOM testing Heart - +S1/S2, irregularly irregular Lungs - CTA Abd - +BS, soft, NT/ND Labs and images reviewed. Assessment/Plan: 80yo female presenting with dizziness/vertigo. Suspect BPPV -Hydration -Meclizine PRN -Ambulatory trial in AM -Remainder of plan as above Resident Activity Tracking Resident Involvement: Resident Care Provided Care Provided: Adult Hospital Medicine
[2021-01-19] MEDS ORDERED: MECLIZINE HCL 25 MG TAB PO PRN (03:50)
[2021-01-19] MEDS ORDERED: ZOLPIDEM TARTRATE 5 MG TAB PO PRN (03:50)
[2021-01-19] MEDS ORDERED: ACETAMINOPHEN 325 MG TAB PO PRN (03:50)
[2021-01-19] MEDS ORDERED: POLYETHYLENE (MIRALAX) 17 GM PACK PO PRN (03:50)
[2021-01-19] MEDS ORDERED: FAMOTIDINE 20 MG TAB PO PRN (03:50)
[2021-01-19] MEDS ORDERED: LACTATED RINGER'S 1,000 ML IV SCH (04:15)
--- NOTE | 2021-01-19 04:22 | Billing Data ---
Date of Service January 19, 2021 Coding Level of Care Code 72819 OBS Care - Level 2
[2021-01-19 06:14] LABS: Basophils # (auto) 0.02 K/uL (0-0.2); Basophils % (auto) 0.2 %; Eosinophils # (auto) 0.11 K/uL (0-0.5); Eosinophils % (auto) 1.3 %; Hematocrit (blood only) 37.8 % (37-47); Hemoglobin 12.5 g/dL (12.0-16.0); Immature Granulocytes # (auto) 0.02 K/uL (0.00-0.02); Immature Granulocytes % (auto) 0.2 %; Lymphocytes # (auto) 1.85 K/uL (1.2-3.4); Lymphocytes % (auto) 21.4 %; Mean Corpuscular Hemoglobin 20.2 pg (25-34); Mean Corpuscular Hgb Conc 33.1 g/dL (32-36); Mean Platelet Volume 9.1 fL (7.4-10.4); Monocytes # (auto) 0.66 K/uL (0.11-0.59); Monocytes % (auto) 7.6 %; Neutrophils # (auto) 5.98 K/uL (1.4-6.5); Neutrophils % (auto) 69.3 %; Platelet Count 193 K/uL (130-400); RDW Coefficient of Variation 15.7 % (11.5-14.5); RDW Standard Deviation 33.2 fL (36.4-46.3); White Blood Count 8.64 K/uL (4.8-10.8)
[2021-01-19 06:48] LABS: BUN Creatinine Ratio 23.7 (10-20); Calcium 8.8 mg/dl (8.5-10.1); Creatinine Clr Calc Pharmacy 48.8 ml/min; Est GFR (African American) 92.6; Est GFR (Non-African American) 79.9; Potassium 3.4 mmol/L (3.5-5.1)
[2021-01-19 06:55] LABS: Basophilic Stippling Occasional; Microcytosis Present; Ovalocytes 1+; Polychromasia 1+
--- NOTE | 2021-01-19 07:15 | CT Scan Report ---
UNENHANCED CT OF THE BRAIN; CT ANGIOGRAM OF THE BRAIN; CT ANGIOGRAM OF THE NECK CLINICAL HISTORY: Vertigo. COMPARISON STUDY: CT of the brain dated 09/28/2020. TECHNIQUE: Unenhanced axial CT scan of the brain is performed. Subsequently, following the IV adminis tration of 119 of [address], CT angiogram of the head and neck was performed from the aortic arch t o the vertex. Images are reviewed in the axial, sagittal, and coronal planes. 3-D MIPS images are cre ated and assessed. IV contrast was administered without complication. All measurements were calculate d based on NASCET criteria. A dose lowering technique was utilized adhering to the principles of ALA RA. CT DOSE: 1073.17 mGy.cm FINDINGS: Brain parenchyma: There is age-related involutional change noting moderate subcortical and periventri cular microangiopathic disease. There is no hemorrhage, mass effect, or evidence of acute territorial ischemia by CT criteria. There is no evidence of enhancing mass lesion on the angiogram phase images . The ventricles, sulci, and cisterns are prominent secondary to involutional change. Harrison-white parth er differentiation is preserved. No extra-axial fluid collection is seen. Thoracic aorta: There is mild atherosclerotic calcification of the thoracic aorta. Visualized portion s of the thoracic aorta are normal in caliber. The aortic arch demonstrates bovine variant anatomy. Right carotid arterial system: The right common carotid artery is widely patent, as are the right int ernal and external carotid arteries. Minimal plaque is noted in the carotid bulb. Left carotid arterial system: The left common carotid artery is widely patent, as are the left international trade compliance manager al and external carotid arteries. Minimal plaque is noted in the carotid bulb. Vertebral arteries: The vertebral arteries are widely patent bilaterally and codominant. Subclavian arteries: Widely patent bilaterally. Intracranial vasculature: There is atherosclerotic calcification of the cavernous carotid arteries. T here is origin of the right posterior cerebral artery. The internal carotid arteries are patent at the skull base, as are the anterior and middle cerebral arteries bilaterally. The vertebrobasilar system and posterior cerebral arteries are widely patent. The vertebral arteries are codominant. The re is no aneurysm, high-grade stenosis, or focal vessel cut off seen throughout the intracranial circ ulation. Jugular veins: Patent bilaterally. Dural sinuses: Patent. Lung apices: Partially visualized upper lobe lung parenchyma appears clear. Soft tissues: The visualized pharyngeal soft tissues are normal in appearance noting angiographic pha se technique. The oropharyngeal airway appears widely patent. Low-attenuation thyroid nodules measure up to 8 mm. The salivary glands are normal in appearance. No cervical lymphadenopathy is seen. Skeletal structures: The skeletal structures are osteopenic. The calvarium appears intact. The cervic al spine is maintained noting multilevel spondylosis. No lytic or blastic lesion is seen. Orbits: The bony orbits are intact. Orbital contents are normal as visualized. Sinuses and mastoids: The paranasal sinuses are clear. The mastoid air cells are well pneumatized. IMPRESSION: 1. There is no hemorrhage, mass effect, or evidence of acute territorial ischemia by CT criteria. 2. Unremarkable CT angiogram of the neck. 3. Unremarkable CT angiogram of the brain. ACT 112: Negative or not required by law. Electronically signed by: Rick Pena M.D. 01/19/2021 7:14 AM
--- NOTE | 2021-01-19 07:59 | XRay Report ---
SINGLE VIEW CHEST CLINICAL HISTORY: Atypical chest pain. FINDINGS: An AP, portable, upright chest radiograph is compared to study dated 11/04/2009. The cardiom ediastinal silhouette is unremarkable. Chronic interstitial thickening is similar to previous. There is mild bibasilar scarring/atelectasis. No airspace consolidation or large pleural effusion is identi fied. No pneumothorax is seen. The skeletal structures are osteopenic. The bony thorax is grossly int act. Arthritic change is noted in the right shoulder. Surgical clips are noted in the upper abdomen. IMPRESSION: No active disease in the chest. ACT 112: Negative or not required by law. Electronically signed by: Rick Pena M.D. 01/19/2021 7:58 AM
[2021-01-19] MEDS ORDERED: POTASSIUM CHLORIDE CRTAB 20 MEQ TABCR PO ONE (08:00)
[2021-01-19] MEDS ORDERED: METOPROLOL TARTRATE 25 MG TAB PO SCH (09:00)
[2021-01-19] MEDS ORDERED: PRAVASTATIN SOD 40 MG TAB PO SCH ×2 (09:00→21:00)
[2021-01-19] MEDS ORDERED: amLODIPine BESYLATE 5 MG TAB PO SCH (09:00)
[2021-01-19] MEDS ORDERED: Nursing to Pharmacy Communication SCH (09:00)
[2021-01-19] MEDS ORDERED: APIXABAN 2.5 MG TAB PO SCH (09:00)
[2021-01-19] MEDS ORDERED: ENALAPRIL MALEATE 10 MG TAB PO SCH (09:00)
--- NOTE | 2021-01-19 16:46 | Electrocardiogram Report ---
Test Reason : Blood Pressure : / mmHG Vent. Rate : 087 BPM Atrial Rate : 087 BPM P-R Int : 168 ms QRS Dur : 088 ms QT Int : 362 ms P-R-T Axes : 057 028 054 degrees QTc Int : 435 ms Normal sinus rhythm Normal ECG When compared with ECG of 16-OCT-2018 10:28, No significant change was found Confirmed by Gonzalo Turpin ([id number]) on 01/19/2021 4:46:20 PM Referred By: REFERRED SELF Confirmed By:Cullen Turpin
--- NOTE | 2021-01-19 17:03 | Med Student Discharge Summary ---
Date of Service January 19, 2021 Admission HPI Per Admitting Provider Reema Miller is here for vertigo. She has a past medical history of Raynaud phenomenon, arthritis, HTN, HLD, paroxysmal atrial fibrillation with RVR, insomnia, and reflux. 3 weeks ago she had an isolated episode of vertigo that resolved after a few minutes. This morning when she woke up she developed vertigo that she explained as the ceiling spinning. This lasted a few minutes and resolved. At 5PM she developed palpitations at dinner and her apple watch had her in A. fib at a rate of 120. She also noted that she did not feel, felt faint and that she felt, "hot in her ears". She called her basketballs and footballs reverser Dr. George lopes and he instructed her to come to the ER. In the ER she developed Vertigo two other times once while getting a CT scan and once while going to the bathroom. She could not clearly identify any trigger or movement that brought it on. She has not had any double vision and no vision changes excluding changes from macular degeneration that have been chronic. She has no sick contacts and no recent illness. Admission Exam (Per Admitting) Constitutional Constitutional: well nourished; no acute distress Eyes: PERRL and + nystagmus (with evaluation of EOM when looking to the right) ENMT: external ear and nose normal, oropharynx normal Neck: normal visual inspection Respiratory: normal respiratory effort, lungs clear to auscultation Cardiovascular: RRR, no murmur, no edema Gastrointestinal (Abdomen): normal bowel sounds, soft, nontender, no hepatosplenomegaly Musculoskeletal: no cyanosis or clubbing, extremities motor strength 5/5 Skin: no rashes, warm and dry Neurologic: CN's II-XI intact bilaterally (with the exception of nystagmus on EOM when looking to the left 3-4 beats) and awake; no focal motor deficits Speech / Cognition: normal speech Motor/Sensory: no pronator drift Nando Hallpike with reproduced symptoms when facing left and laying down Psychiatric: A+Ox3, euthymic affect Specialty Data Hospitalist Head CT, Headt CTA, Nech CTA no acute abonrmalities . Discharge Data Consultations 01/19/21 00:21 ED Decision to Admit Stat Hospital Course (1) Vertigo: Patient was worked up for vertigo. She had experienced several episodes with the first one starting about 3 weeks ago. She experience one episode yesterday and a few more while at the hospital. Episodes would last a few minutes then resolve on their own. She has tinnitus but no hearing loss or changes. No vision changes or double vision. No nausea vomiting. No neurological sxs such as numbness or tingling or weakness. Denies any recent viral like sxs. To exclude central reasons for vertigo, Head CT, Head/neck CTA was done. No acute abnormalities. Vertigo seems to be triggered by movement. Reproduced by Nando Godinez. Most likely to be BPPV. Responds well to Meclizine. Patient was given Meclizine 25 mg po which helped with her vertigo. Was given a 15 tab prescription to use PRN. (2) Paroxysmal atrial fibrillation with RVR: (3) Chronic anticoagulation: Patient chronically anticoagulated on Eliquis due to Afib. Was given during hospital stay. -Continue Eliquis 2.5 PO BID (4) Hypertension: Patient was given home Metoprolol and Amlodipine during hospital stay. BP stable. Last read: 120/69 -continue Metoprolol Tertate 12.5 PO BID -continue Amlodipine 5 MG PO daily (5) Hyperlipidemia: Patient was given home Pravastatin during hospital stay - continue Pravastatin 40 mg PO HS [facility] Discharge Plan Discharge Items Patient Disposition: Home - Self-Care Reason For Visit: VERTIGO Discharge Diagnosis: vertigo, history of paroxysmal atrial fibrillation Condition on Discharge: Good Activity: Per Instructions section Non-emergency contact: Primary Care Provider and Family And Consumer Sciences Teacher Call non-emergency contact if: you have any medication questions and your symptoms worsen Follow-up/Referrals: Brett Vasquez MD [Primary Care Provider] - 01/20/21 2:15 pm (Your primary care appointment is with Dr Vasquez's physician office support assistant, Shama Yousif. If you need to change this appointment, please call [phone].) Diet: Regular Addtl Attending Provider Instructions: Mrs. Miller, It was our pleasure to care for you at [facility] from 01/18/21 to 01/19/21. You initially presented to the emergency department with concerns of palpitations, feeling lightheaded/pre-syncopal (which is feeling as if you're going to pass out), and concerns of atrial fibrillation. You then had concerns of dizziness/vertigo. While in the hospital, you had imaging of your head/neck which showed no concerning symptoms and no signs of stroke. This is good news! We have monitored your heart rate and heart rhythm which has also been stable and normal without atrial fibrillation. This is also good news! You should continue all your home medications, including apixaban and metoprolol, as prescribed. With regards to the dizziness/vertigo, you had good relief with a medication called Meclizine; you have bene prescribed a few of these pills. As we d iscussed, these should be used sparingly. I also recommend that you contact physical therapist, Raphael Molina, for vestibular therapy -- she is with [facility] ([phone]). You should follow up with you primary care physician in 2-3 days. You should also follow up with your basketballs and footballs reverser in 2-3 days. Pending Studies at Discharge: No Stand-Alone Forms: My [facility], Smoking Cessation Medications and DC Order Prescriptions: New meclizine 25 mg tablet 25 mg PO TID PRN (Reason: dizziness) Qty: 14 RF: 0 Continued amlodipine-benazepril [Lotrel] 5-10 mg capsule 1 cap PO DAILY Qty: 90 RF: 3 pravastatin [Pravachol] 40 mg tablet 40 mg PO DAILY Qty: 90 RF: 3 zolpidem [Ambien] 5 mg tablet 2.5 - 5 mg PO HS PRN (Reason: Insomnia) Qty: 90 RF: 0 nortriptyline [Pamelor] 10 mg capsule 20 mg PO HS Qty: 180 RF: 3 metoprolol tartrate 25 mg tablet 12.5 mg PO BID RF: 0 Eliquis 2.5 mg tablet 2.5 mg PO BID RF: 0 acetaminophen [Tylenol] 325 mg Tablet 325 mg PO Q4H PRN (Reason: Pain) RF: 0 Metamucil Fiber Singles 3.4 gram Powder In Packet 1 packet PO DAILY RF: 0 famotidine [Pepcid] 40 mg tablet 20 mg PO HS PRN (Reason: GERD) RF: 0 Discharge Orders: Discharge Order (Routine); Ordered 01/19/21 Ordered By: Maryjane Garcia Admission Data Admit Date/Time: 01/19/21 02:56 Attending Provider: Sumaya Villalpando Admit Provider: Dickson Becerra Primary Care Provider: Brett Vasquez Other Providers: Tati Mtz Other Interventions: Discharge Summary Assessment (RN) Last Done: 01/19/21 16:07 Supervising Attestation Patient seen and examined with Student Doctor Aracelis and PGY-1 Dr. Garcia. Agree with history, exam findings, assessment and plan of care. In brief, Ms Miller is an 80 year old female with history of pAF, HTN, HLD, Raynauds admitted due to presyncope with associated afib on her apple watch. HRs in the 110s-120s. Advised by her basketballs and footballs reverser to be seen in the emergency room. While she was in the ED, became very dizzy, consistent with BPPV and had minimal improvement with 1 dose of meclizine. She did not have any further episodes of afib while admitted. Home metoprolol and apixiban continued. Her vertigo resolved with meclizine. Rx for meclizine discussed--one was sent from the ED. She can use this as needed. Discussed anticholingeric effects of this medication with the patient. Recommend outpatient vestibular therapy. Her blood pressure was stable and home medication continued. Exam on the day of discharge: VS reviewed Well appearing, conversational. Heart with regular rate and rhythm. Tele reviewed--no episodes of afib. Lungs are clear to auscultation. Follow up with cardiology in 1-2 weeks. Follow up with PCP in 1-2 weeks. Addendum (Blank) Addendum Discharge Exam performed by Medical student: Constitutional well developed; no acute distress Respiratory normal respiratory effort Auscultation: lungs clear to auscultation bilaterally; no crackles, no rales, no rhonchi and no wheezes Cardiovascular Rate/Rhythm: regular rate and regular rhythm Heart Sounds: normal S1 and normal S2; no gallop, no murmur and no cardiac rub Extremities: no pedal edema and no edema Gastrointestinal (Abdomen) Inspection/Auscultation: abdomen normal to inspection and normal bowel sounds; abdomen not distended Percussion/Palpation: abdomen nontender, no guarding and abdomen not rigid Neurologic moves all extremities and awake; no focal motor deficits and not confused Speech / Cognition: normal speech, no expressive aphasia, no receptive aphasia and normal cognition Motor/Sensory: no pronator drift Cranial Nerves: normal accommodation and normal hearing Coordination: normal [id number] test and normal [id number] test
[2021-01-19] MEDS ORDERED: NORTRIPTYLINE HCL 10 MG CAP PO SCH (21:00)
== END 2021-01-19 17:15 | disposition home or self-care (01) ==
LOC: 2N 20:16 → ED 20:16 → SUATTDRO 01-19 02:56 → 2N 01-19 03:14